=== PATIENT | female | born 1955 | race Caucasian/White ===

== ENCOUNTER → 2019-09-25 | Outpatient (CLI) | payer OTHER, SELFPAY ==
--- NOTE | 2019-09-25 15:00 | CER_PTH ---
PATIENT: YU MCDANIELS LOC: KT U#:[id number] AGE/SX: 64/F ROOM: RE09/25/[address]: Dr. Marv Gaytan MD : 1955 BED: DIS: 09/25/2019 SPEC #: [id number] RECD: 09/26/19 11:23 STATUS: THA NICOLE #: [id number] ARAM: 09/25/19 15:[address]: Marv Gaytan DEPT: SURGICAL PATHOLOGY RECD BY: Itz Morse ENTERED: 09/26/19 11:23 SP TYPE: CERV OTHR DR: Dr. Margie Villa MD Tissues: Uterine cervix, NOS Procedures: Surgery Specimen Level IV HEADER OPERATION: Polypectomy PRE-OP DIAGNOSIS: Cervical polyp TISSUE SUBMITTED: Cervical polyp MICROSCOPIC DIAGNOSIS Cervical biopsy: Fragments of benign endocervical polyp, inflamed. Rare fragments of detached squamous mucosa. AM:jenni 09/27/19 MICROSCOPIC DESCRIPTION Slides are reviewed. GROSS DESCRIPTION Received in fixative is one container labeled with the patient's name and designated cervical polyp. The specimen consists of multiple irregular fragments of adames mucoid tissue mixed with polypoid tissue that in aggregate measure 3 x 2.5 x 0.3 cm. The entire specimen is submitted in one cassette. / SJ:rg 09/26/19 TC: 5 CPT: 79159
[2019-09-28 12:04] LABS: HPV Reflexed? NOT INDICATED
== END | disposition home or self-care (01) ==
PROVIDERS: PCP Family Medicine; Referring Provider Obstetrics & Gynecology; Visit Provider Obstetrics & Gynecology
DX: N84.1 Polyp of cervix uteri (principal); Z12.4 Encounter for screening for malignant neoplasm of cervix
CPT/HCPCS: 88175; 88305; G0145

== ENCOUNTER → 2020-03-19 | Outpatient (CLI) | payer OTHER, SELFPAY ==
--- NOTE | 2020-03-19 | ASPS_PTH ---
PATIENT: YU MCDANIELS LOC: KT U#:[id number] AGE/SX: 64/F ROOM: RE03/19/[address]: Dr. Oscar Joel MD : 1955 BED: DIS: 03/19/2020 SPEC #: [id number] RECD: 03/19/20 15:24 STATUS: THA NICOLE #: [id number] ARAM: 03/19/20 00:[address]: Oscar Joel DEPT: CYTOLOGY RECD BY: Itz Morse ENTERED: 03/20/20 09:04 SP TYPE: ASPIRATION OTHR DR: Dr. Shannon Whelan MD Tissues: A - Thyroid gland, NOS B - Thyroid gland, NOS Procedures: Special Stain Group II Cytology Other HEADER OPERATION: Bilateral thyroid FNA PRE-OP DIAGNOSIS: Bilateral thyroid nodules, multiple TISSUE SUBMITTED: A - Right thyroid slides x6, B - Left thyroid slides x2 DIAGNOSIS CYTOLOGY A. Right thyroid nodule, FNA (smears): Consistent with benign follicular/colloid nodule. Adequate for evaluation. B. Left thyroid nodule, FNA (smears): A few benign follicular cells noted. See comment. SJ:jenni 03/21/20 COMMENT B. The evaluation is limited due to lack of adequate number of follicular cells. Correlation with clinical, radiologic findings and appropriate follow up are necessary. Case has been reviewed in consultation with Dr. Hair who concurs with the above diagnosis. IDC:AM CYTOLOGY STUDY Slides are reviewed. CYTOLOGY GROSS A - Received are six smears labeled with the patient's name and designated per the requisition as right thyroid. Submitted for staining. B - Received are two smears labeled with the patient's name and designated per the requisition as left thyroid. Submitted for staining. / jenni 03/20/20 TC:5 CPT: 76952 x2
[2020-03-19 13:20] VITALS: BMI 29.2
== END | disposition home or self-care (01) ==
LOC: LABSPEC 15:38
PROVIDERS: PCP Internal Medicine; Referring Provider Surgery; Visit Provider Surgery
DX: E04.2 Nontoxic multinodular goiter (principal)
CPT/HCPCS: 88161; 88313

== ENCOUNTER → 2021-03-04 09:49 | Outpatient (CLI) | payer MEDICARE, OTHER, SELFPAY ==
[2020-03-19 13:20] VITALS: BMI 29.2
--- NOTE | 2021-03-04 09:55 | RAD_ITS ---
STUDY: X-RAY CHEST REASON FOR EXAM: Female, 65 years old. COPD TECHNIQUE: PA and lateral views of the chest. COMPARISON: None. FINDINGS: There is hyperinflation of the lungs consistent with chronic obstructive lung disease (COPD). There is no demonstrated pleural abnormality. Normal size heart. Normal mediastinum and sindy. Normal visualized pulmonary arteries. There is atherosclerotic calcification of the aortic arch with tortuosity. Normal visualized thoracic spine. Normal visualized ribs, clavicles, and shoulders. There is no demonstrated abnormality of the visualized soft tissue structures of the upper abdomen. RAD/Chest PA and Lateral IMPRESSION: Hyperinflation. Mild increased markings at the lung bases suggests mild linear atelectasis. Electronically Signed: Gary Ochoa MD at 20:34 EDT , Service support ,
[2021-03-04 12:57] LABS: BNP,B-Type NATRIURETIC PEPTIDE 113.3 pg/mL (0-100)
== END ==
PROVIDERS: PCP Internal Medicine; Referring Provider Internal Medicine Pulmonary Disease; Visit Provider Internal Medicine Pulmonary Disease
DX: J44.9 Chronic obstructive pulmonary disease, unspecified (principal); G47.33 Obstructive sleep apnea (adult) (pediatric); R09.02 Hypoxemia
CPT/HCPCS: 36415; 71046; 83880

== ENCOUNTER → 2021-04-03 14:54 | Outpatient (CLI) | payer MEDICARE, OTHER, SELFPAY ==
[2021-04-03 18:11] LABS: Hematocrit 44.1 % (37-47); Hemoglobin 14.6 g/dL (12.0-15.0); Mean Corp Hgb Conc 33.1 g/dL (32-36); Mean Corpuscular Hgb 29.9 pg (27.0-32.0); Mean Corpuscular Volume 90.2 fL (81-99); Mean Platelet Vol. 10.6 fl (6.2-12.0); Platelet Count 242 K/mm3 (150-450); RBC Distribution Width CV 13.5 % (11.6-14.6); RBC Distribution Width SD 44.5 fl (35.1-43.9); Red Blood Count 4.89 M/mm3 (4.2-5.4); White Blood Count 6.6 K/mm3 (4.4-11.0)
== END ==
PROVIDERS: PCP Internal Medicine; Referring Provider Internal Medicine Pulmonary Disease; Visit Provider Internal Medicine Pulmonary Disease
DX: J44.9 Chronic obstructive pulmonary disease, unspecified (principal); R09.02 Hypoxemia
CPT/HCPCS: 36415; 85027

== ENCOUNTER → 2021-04-10 13:05 | Outpatient (CLI) | payer MEDICARE, OTHER, SELFPAY ==
--- NOTE | 2021-04-10 13:10 | CT_ITS ---
STUDY: CT CHEST WITHOUT CONTRAST REASON FOR EXAM: Female, 65 years old. 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 Individualized dose optimization techniques were used for this CT. COMPARISON: Chest x-ray 03/04/2021 FINDINGS: Mild emphysematous changes. 1 x 3 cm subpleural nodule in the lateral right lower lobe on image 75 and correlation with PET CT scan is recommended. If PET negative, follow-up CT is recommended in 6 months. There is no demonstrated pleural abnormality. Normal heart and pericardium. There are calcifications of the coronary arteries. Normal mediastinum. Normal hilar regions. Normal unenhanced pulmonary arteries. Normal aorta arch and descending thoracic aorta. Normal osseous structures. Diffusely decreased attenuation of the hepatic parenchyma consistent with fatty infiltration. CT/Chest without Contrast IMPRESSION: 1. Mild emphysema with a 1 x 3 cm subpleural right lower lobe nodule and correlation with PET CT scan is recommended. If PET negative, follow-up CT is recommended in 6 months to document stability. 2. Fatty filtration liver. Electronically Signed: Ihsan Louis MD at 14:00 EDT Tel , Service support ,
== END ==
PROVIDERS: PCP Internal Medicine; Referring Provider Internal Medicine Pulmonary Disease; Visit Provider Internal Medicine Pulmonary Disease
DX: J44.9 Chronic obstructive pulmonary disease, unspecified (principal)
CPT/HCPCS: 71250

== ENCOUNTER → 2021-05-19 14:58 | Outpatient (CLI) | payer MEDICARE, OTHER, SELFPAY ==
--- NOTE | 2021-05-19 14:30 | PET_ITS ---
EXAMINATION: FDG PET-CT INDICATIONS: A 66-year-old female with history of pulmonary nodularity. COMPARISON EXAMINATION: CT of the chest report dated 04/10/21 INDEX LESION SIZE SUV INTERPRETATION Left retropectoral soft tissue nodules (n=2) 20.8-mm (largest) (frame 238) 2.8 (max) May necessitate histopathologic investigation, short-term reevaluation with FDG PET-CT imaging recommended at a minimum Right lower lateral hemithorax pleural interface 40.4-mm (frame 195) 1.7 Quantitative criteria for viable neoplasm are not fulfilled, sequential radiologic investigation recommended TECHNIQUE: Following the intravenous administration of F-18 deoxyglucose, multiplanar image acquisitions of the neck, chest, abdomen and pelvis to level of mid thigh, obtained at one hour post radiopharmaceutical administration contemporaneously interpreted with the current CT of the neck, chest, abdomen and pelvis, to level of mid thigh, dated 05/19/[address] of the chest report dated 04/10/21 reveals: FINDINGS: 1. There is an increase in fluorine labeled glucose metabolism manifest in the right lower posterolateral hemithorax corresponding to a pleural-based density defined on CT of the chest dated 05/19/21. The calculated maximal standard uptake value is 1.6. The maximal axial diameter of the corresponding pleural-based density on review of CT of the chest dated 05/19/21 is 30.4-mm (AP). 2. Enhanced tracer concentration is observed in the left retropectoral lymph node distributions rendering a calculated maximal standard uptake value of 2.8. The maximal axial diameter of the largest corresponding metabolic, morphologic abnormality on review of CT of the chest dated 05/19/21 is 20.8-mm (AP). 3. Normal physiologic distribution of the radiopharmaceutical is apparent in the hepatic (2.5) and splenic parenchyma, both renal units, bladder and visualized intestinal tract. The visualized portion of the cerebral cortical-subcortical structures demonstrate symmetric and preserved glucose metabolism. Diffuse radiopharmaceutical concentration is noted in all four quadrants of the abdomen and pelvis. Prominent radiopharmaceutical concentration is noted in the pharyngeal mucosal space associated with the distribution of the pharyngeal constrictor musculature most consistent with physiologic tracer uptake. Pertinent CT findings are as follows: CHEST: There are no additional parenchymal densities-nodules defined in the right and left hemithorax with discernible increased tracer uptake. Additional left and visualized right soft tissue with fatty hilus is ametabolic. Scattered mediastinal soft tissue densities reveal no evidence of increased tracer uptake. There is atherosclerotic calcification defined in the thoracic aorta without evidence of dilatation-aneurysm formation. ABDOMEN AND PELVIS: There is atherosclerotic calcification defined in the abdominal aorta without evidence of dilatation-aneurysm formation. Pelvic arterial calcification is observed. There is borderline fatty metamorphosis-steatosis defined in the hepatic parenchyma. Cholelithiasis is demonstrated. A small paraumbilical fat containing hernia is encountered. Right and left inguinal soft tissue densities with fatty hilus are ametabolic. SKELETAL: Degenerative changes are noted in the cervical, thoracic and lumbar spine without evidence of increased radiopharmaceutical concentration. PET/PET/CT Tumor Base -Thigh Init IMPRESSION: 1. Increased FDG distribution defined in the left retropectoral lymph node distributions may necessitate histopathologic investigation secondary to the quantitative degree of uptake. 2. If a conservative management approach is undertaken regarding the above-mentioned retropectoral soft tissue nodules, repeat FDG PET-CT imaging in 9-12 weeks is recommended to ensure stability, involution. 3. Enhanced tracer uptake observed in the right lower lateral hemithorax at the pleural interface does not fulfill quantitative criteria for viable neoplasm. (Christopher, et al, Chest 122:1918, 2002). 4. Metabolic and/or anatomic stability may be ensured in the right lower lateral hemithorax pulmonary parenchymal abnormality with repeat FDG PET study and/or CT of the thorax in three months. (Xiu, Journal of Nuclear Medicine 45:88, P2004 Karan, Seminars in Thoracic and Cardiovascular Surgery 14:292, 2002). Electronic Signature Ihsan Adan D.O. Accurate Quantification of SUVs for this report are calculated using the exclusive [employer]. (U.S. Patent No. 10, 674, 983). Standardization and correction of the FDG SUV metric via [employer] technology allow for vendor non-specific objective quantitative examination comparison and optimization of the sensitivity and specificity of the FDG PET-CT examination. Electronically Signed: Ihsan Adan DO at 22:34 EDT Tel , Service support ,
== END ==
PROVIDERS: PCP Internal Medicine; Referring Provider Internal Medicine Pulmonary Disease; Visit Provider Internal Medicine Pulmonary Disease
DX: R91.8 Other nonspecific abnormal finding of lung field (principal)
CPT/HCPCS: 78815; A9552

== ENCOUNTER 2021-09-02 07:59 | Outpatient (CLI) | payer MEDICARE, OTHER, SELFPAY ==
--- NOTE | 2021-09-02 08:30 | PET_ITS ---
EXAMINATION: FDG PET-CT INDICATIONS: A 66-year-old female with reported history of pulmonary nodularity. COMPARISON EXAMINATION: FDG PET study dated 05/19/21 INDEX LESION SIZE SUV INTERPRETATION PERSISTENT: left retropectoral soft tissue nodularity 21.6-mm (largest) (frame 227) comp. to 20.8-mm (05/19/21) 5.2 (max) comp. to 2.8 (05/19/21) May necessitate histopathologic investigation secondary to the quantitative degree of uptake PERSISTENT: right lower lateral hemithorax pleural interface 39.8-mm (frame 184) comp. to 40.4-mm (05/19/21) 1.7 unchanged (05/19/21) Quantitative criteria for viable neoplasm are not fulfilled, no definitive interim metabolic change NON-INDEX LESION SIZE SUV INTERPRETATION NEW: right lateral neck level III 7.5-mm (largest) (frame 269) 4.3 (max) Soft tissue with fatty hilus, low likelihood of viable neoplasm TECHNIQUE: Following the intravenous administration of 13.45 mCi of F-18 deoxyglucose via the right antecubital fossa, multiplanar image acquisitions of the neck, chest, abdomen and pelvis to level of mid thigh, obtained at one hour post radiopharmaceutical administration contemporaneously interpreted with the current CT of the neck, chest, abdomen and pelvis, to level of mid thigh, dated 09/02/21 via coregistration and FDG PET study dated 05/19/21 reveals: BLOOD GLUCOSE LEVEL:?? 114 mg/dl?HEIGHT:?68 inches?WEIGHT: 203 lbs. FINDINGS: 1. Redefined increased 18-F labeled glucose metabolism remains evident in the left retropectoral lymph node distribution, in two separate nodular presentations, generating a current calculated maximal standard uptake value of 5.2, compared to 2.8 defined on the FDG PET study dated 05/19/21. The maximal axial diameter of the largest individual metabolic, morphologic abnormality on review of CT of the chest dated 09/02/21 is 21.6-mm (transverse). 2. Minimally enhanced radiopharmaceutical concentration remains evident in the right lower lateral hemithorax at the pleural interface rendering a calculated maximal standard uptake value of 1.7, unchanged compared to the examination dated 05/19/21. The maximal axial diameter of the corresponding pleural-based density on the current examination is 39.8-mm. 3. Increased FDG uptake is currently identified in the right lateral neck involving level III. The calculated maximal standard uptake value is 4.3. The maximal axial diameter of the largest individual metabolic, morphologic abnormality on review of CT of the neck dated 09/02/21 is 7.5-mm (AP). The corresponding soft tissue densities demonstrate expressed fatty hilus. 4. Normal physiologic distribution of the radiopharmaceutical is apparent in the hepatic (3.6/2.5) and splenic parenchyma, both renal units, bladder and visualized intestinal tract. Previously defined morphologic-anatomic changes noted on review of CT of the neck, chest, abdomen and pelvis on the FDG PET-CT report dated 05/19/21, are essentially unchanged on the current examination. PET/PET/CT Tumor Base -Thigh Init IMPRESSION: 1. Increased FDG distribution redefined in the left retropectoral regions likely warrants histopathologic investigation secondary to the quantitative degree of uptake. 2. Enhanced tracer uptake redemonstrated in the right lower lateral hemithorax at the pleural interface does not fulfill quantitative criteria for malignant transformation. (Christopher, et al, Chest 122:1918, 2002). 3. The increase in radiopharmaceutical concentration newly identified in the right lateral neck involving III with corresponding soft tissue densities demonstrating fatty hilus is consistent with a lower likelihood of viable neoplasm and likely represents reactive adenopathy. (Joey Stallings, Cancer Imaging 9:104, 2009). 4. Overall, compared to the prior FDG PET study dated 05/19/21, the increase in tracer uptake persistently defined in the left retropectoral lymph node regions may necessitate histopathologic investigation. Electronic Signature Ihsan Adan D.O. Accurate Quantification of SUVs for this report are calculated using the exclusive [employer], (U.S. Patent No. 10, 674, 983). Standardization and correction of the FDG SUV metric exclusively available with [employer] intellectual property, allow for vendor non-specific objective quantitative sequential FDG PET-CT comparison and otherwise unobtainable optimization of the sensitivity and specificity of the examination. Electronically Signed: Ihsan Adan DO at 17:49 EST ,
== END 2021-09-02 23:59 | disposition home or self-care (01) ==
PROVIDERS: PCP Internal Medicine; Referring Provider Internal Medicine Pulmonary Disease; Visit Provider Internal Medicine Pulmonary Disease
DX: R91.1 Solitary pulmonary nodule (principal)
CPT/HCPCS: 78815; A9552

== ENCOUNTER 2021-10-06 08:06 | Outpatient (CLI) | payer MEDICARE, OTHER, SELFPAY ==
[2021-10-06] VITALS (10 sets, daily range): BP systolic 138–172; BP diastolic 44–75; PULSE 50–76; RESP 11–20; TEMP 36.8; O2SAT 90–98; BMI 32.8
--- NOTE | 2021-10-06 | IMM_PTH ---
PATIENT: YU MCDANIELS LOC: CT U#:[id number] AGE/SX: 66/F ROOM: RE10/06/[address]: Dr. Oscar Thomas MD : 1955 BED: DIS: 10/06/2021 SPEC #: [id number] RECD: 10/07/21 14:45 STATUS: THA REQ #: [id number] ARAM: 10/06/21 00:[address]: Oscar Thomas V DEPT: IMMUNOHISTOCHEMISTRY RECD BY: Edelmira Collins ENTERED: 10/07/21 14:47 SP TYPE: IMMUNO OTHR DR: Dr. Shannon Whelan MD Tissues: Lymph node of neck, NOS Procedures: BCL-2 (add) BCL-6 (add) CD10 (add) CD20 (add) CD23 (add) CD43 (add) CD45 (add) CD5 (add) CD79A (add) CYCLIN (add) KI-67 (add) CD3 (initial) PHYSICIAN & [address] [address] SPECIMEN INFORMATION: Tissue Source: Left supraclavicular node Clinical Info: Anterior left chest lymph node, abnormal PET Specimen Number: [id number] CPT code: 36148, 14837 x11 METHODOLOGY: Deparaffinized sections of prefer/formalin-fixed tissue or PAP/DQ stained slides are incubated with monoclonal/polyclonal antibodies/oligonucleotide probes. Localization is made via biotin free immunoperoxidase method. Appropriate controls are performed and reacted as expected. Results on target cell population are indicated in the following table: RESULTS: ANTIBODY / CLONE RESULT CD3 (PS1) positive CD5 (SP10) positive, T-cells CD20 (L26) positive, B-cells CD43 (L60) positive, T-cells CD45 (RP2/18) positive CD79a (11E3) positive, B-cells CD10 (56C6) positive, germinal cells CD23 (1B12) positive, follicular dendritic cells BCL-2 (bcl-2/100/D5) negative, germinal center BCL-6 (YW451F/A8) positive, germinal center Cyclin D1/BCL-1 (SP4) negative Ki-67 (30-9) positive, low to moderate These tests were developed and their performance characteristics determined by [facility]. They may not have been cleared or approved by the U.S. Food and Drug Administration. The FDA has determined that such clearance or approval is not necessary. The above immunohistochemical/dualISH markers are ordered and reviewed by the Pathologist. INTERPRETATION: Left supraclavicular lymph node, CT-guided biopsy: Reactive paracortical hyperplasia. No evidence of lymphoma. See comment. SJ:jenni 10/19/2021 Comment: The specimen is sent to [facility] for expert opinion, reviewed by Dr. Fry and the above diagnosis is rendered. The complete report is viewable in the patient's EMR. Case has been reviewed in consultation with Dr. Hair who concurs with the above diagnosis. IDC:AM
--- NOTE | 2021-10-06 | ASPIGT_PTH ---
PATIENT: YU MCDANIELS LOC: CT U#:[id number] AGE/SX: 66/F ROOM: RE10/06/[address]: Dr. Oscar Thomas MD : 1955 BED: DIS: 10/06/2021 SPEC #: [id number] RECD: 10/06/21 10:56 STATUS: THA REDarrel #: [id number] ARAM: 10/06/21 00:[address]: Oscar Thomas V DEPT: SURGICAL PATHOLOGY RECD BY: Marty Maldonado ENTERED: 10/06/21 10:56 SP TYPE: ASP RAD OTHR DR: Dr. Shannon Whelan MD Tissues: Chest wall, NOS Procedures: FNA Specimen Adequacy Special Stain Group II Surgery Specimen Level IV Imprint (control) HEADER OPERATION: CT-guided left chest biopsy PRE-OP DIAGNOSIS: Anterior left chest lymph node, abnormal PET TISSUE SUBMITTED: Left supraclavicular node 18-gauge, core x4 MICROSCOPIC DIAGNOSIS Left supraclavicular lymph node, CT-guided core biopsy: Reactive paracortical hyperplasia. No evidence of lymphoma. See comment. SJ:rg 10/19/2021 COMMENT The specimen is evaluated at the time of biopsy by Dr. Albert. Immediate Evaluation = Numerous lymphocytes noted. Flow cytometry study from [facility] shows no evidence of lymphoma. Elevated CD4:CD8 ratio (10.7:1). The specimen is sent to [facility] for expert opinion, reviewed by Dr. Fry and the above diagnosis is rendered. The complete report is viewable in the patient's EMR. Immunohistochemistry ([id number]) and additional immunohistochemical stains performed at [facility] supports the above diagnosis. Case has been reviewed in consultation with Dr. Hair who concurs with the above diagnosis. IDC:AM MICROSCOPIC DESCRIPTION Slides are reviewed. GROSS DESCRIPTION Received in fixative is one container labeled with the patient's name and designated left supraclavicular lymph node. The specimen consists of three elongated fragments of adames soft tissue each measuring 1.5 cm in length. The entire specimen is submitted in one cassette. One core is submitted for flow cytometry studies. Two touch imprints are prepared at the time of core biopsy. / BHUMIKA:jenni 10/06/2021 TC:5 CPT: 54611, 21356
--- NOTE | 2021-10-06 08:22 | CT_ITS ---
PROCEDURE: CT GUIDED biopsy of a left supraclavicular lymph node. DATE: 10/06/2021. INDICATION: Female, 66 years old. Left supraclavicular lymphadenopathy. PHYSICIAN: Gary Ochoa M.D. RADIATION DOSAGE (If Supplied By Facility): CTDIvol = ( 20.5 ) mGy, DLP = ( 353.37 ) mGycm. Individualized dose optimization techniques were utilized. PROCEDURE: The risks, benefits, and alternatives to the procedure were explained to the patient. The specific risk of hemorrhage requiring further treatment or intervention was detailed and accepted. Follow-up instructions were discussed with the patient as well. Written informed consent was obtained. The patient was brought into the CT suite and placed in the supine position. . An appropriate entry site was identified. The overlying skin was prepped and draped in the usual sterile fashion. 1% lidocaine was administered subcutaneously for local anesthesia. Conscious sedation was performed. The patient received 1 mg of VERSED and 25 mcg of FENTANYL intravenously. Conscious sedation was started at 9:37 AM and terminated at 9:56 AM. The patient was independently monitored by the department nurse. Under CT guidance, a total of 4 passes were performed utilizing an 18-gauge core biopsy needle system. The specimens were then placed in the appropriate fluid and transported to the laboratory for analysis. Hemostasis was obtained. The patient tolerated the procedure well without immediate complications. CT/Biopsy/Inj or Needle Placement IMPRESSION: Successful CT guided biopsy of the left supraclavicular lymph node, as described above. Conscious sedation was performed. Electronically Signed: Gary Ochoa MD at 10:38 EST ,
[2021-10-06] MEDS: Midazolam 2 MG/2 ML Syringe IV (09:37)
[2021-10-06] MEDS: fentaNYL 100 MCG/2 ML Ampul IV (09:39)
[2021-10-06] MEDS: Lidocaine 2% (20 ml mdv) 20 ML Vial INFILT (09:48)
== END 2021-10-06 23:59 | disposition home or self-care (01) ==
LOC: CT 08:08
PROVIDERS: PCP Internal Medicine; Referring Provider Internal Medicine Pulmonary Disease; Visit Provider Internal Medicine Pulmonary Disease
DX: R91.1 Solitary pulmonary nodule (principal); J44.9 Chronic obstructive pulmonary disease, unspecified; R59.0 Localized enlarged lymph nodes; Z79.899 Other long term (current) drug therapy; G47.33 Obstructive sleep apnea (adult) (pediatric); R09.02 Hypoxemia; K21.9 Gastro-esophageal reflux disease without esophagitis; G47.61 Periodic limb movement disorder; J30.1 Allergic rhinitis due to pollen; Z87.891 Personal history of nicotine dependence
CPT/HCPCS: 38505; 77012; 88172; 88305; 88313; 88341; 88342; 99156; J7040; A4216